=== PATIENT | female | born 1995 | race Two or more races ===

== ENCOUNTER 2019-03-29 16:29 | Emergency (ER) | payer OTHER ==
[~2019-03-29] VITALS: Ht 167.6 cm; Wt 97.5 kg
[2019-03-29] MEDS ORDERED: ZOLOFT25 MG ORAL (16:43)
[2019-03-29 16:54] VITALS: BP 135/86
--- NOTE | 2019-03-29 16:56 | NUR ---
ER Nurse Note: Pt walked in c/o pain on thumb on RT hand. Pt stated a family member's bird bit her hand and punctured through the thumb. Pt is unable to bend finger and states 10/10 pain. Finger is swollen. Not up to date with tetnus shot. ER PA at pt side; will conitnue to [facility].
[2019-03-29] MEDS ORDERED: Tetanus/Diptheria/Pertussis IM ONE (17:00)
--- NOTE | 2019-03-29 17:31 | Emergency Room Report ---
History of Present Illness General Chief Complaint: Animal Bite Source: Patient Present Illness HPI 23-year-old female with no significant past medical history here complaining of puncture wound in the right thumb that happened today. Patient reports that he was bit by a bird and the finger was grabbed for several minutes. Patient complains of numbness and pain full range of motion the tip of the affected side. Patient is not up-to-date with tetanus shot. Rating pain 10 out of 10 without radiation. Complains of minimal bleeding. Has not taken medication for symptom relief. Denies fever and chills, shortness of breath, palpitation, no other associated symptoms. Sensory deficit in the affected side Allergies: Coded Allergies: PENICILLINS (Verified Allergy, Unknown, 03/29/19) Patient History Past Medical History: see triage record Past Surgical History: unable to obtain Pertinent Family History: none Now: No Immunizations: other - Tdap given today Reviewed Nursing Documentation: PMH: Agreed; PSxH: Agreed Nursing Documentation-PMH Past Medical History: No Stated History Review of Systems All Other Systems: negative except mentioned in HPI Physical Exam Vital Signs Date Time Temp Pulse Resp B/P (MAP) Pulse Ox O2 Delivery O2 Flow Rate FiO2 03/29/19 16:40 99.0 87 17 135/86 (102) 99 Room Air Sp02 EP Interpretation: reviewed, normal General Appearance: no apparent distress, alert, GCS 15, non-toxic Head: normocephalic, atraumatic Eyes: bilateral eye normal inspection, bilateral eye PERRL ENT: hearing grossly normal, normal pharynx, no angioedema, normal voice Neck: full range of motion, supple/symm/no masses Respiratory: chest non-tender, lungs clear, normal breath sounds, no rhonchi, no wheezing, speaking full sentences Cardiovascular #1: regular rate, rhythm, no edema, no murmur Cardiovascular #2: 2+ radial (R), 2+ radial (L) Gastrointestinal: normal bowel sounds, non tender, soft, non-distended, no guarding, no rebound Genitourinary: no CVA tenderness Musculoskeletal: back normal, non-tender, swelling - Right thumb Neurologic: alert, motor strength/tone normal, oriented x3, sensory intact, responsive, speech normal Psychiatric: judgement/insight normal, memory normal, mood/affect normal, no suicidal/homicidal ideation Skin: other - Puncture wound of right thumb Lymphatic: no adenopathy Medical Decision Making AMIE Attestation All my diagnosis and treatment plans were reviewed ad discussed with my supervising physician Dr. Latham Diagnostic Impression: Primary Impression: Puncture wound of finger of right hand ER Course 23-year-old female with no significant past medical history here complaining of puncture wound in the right thumb that happened today. Patient reports that he was bit by a bird and the finger was grabbed for several minutes. Patient complains of numbness and pain full range of motion the tip of the affected side. Patient is not up-to-date with tetanus shot. Rating pain 10 out of 10 without radiation. Complains of minimal bleeding. Has not taken medication for symptom relief. Denies fever and chills, shortness of breath, palpitation, no other associated symptoms. Sensory deficit in the affected side Ddx considered but are not limited to : Superficial laceration, deep laceration , tendon involvement with laceration, laceration with foreign body, puncture wound Vital signs: are WNL, pt. is afebrile H&PE are most consistent with: Puncture wound of right thumb ORDERS: Clindamycin as patient is allergic to penicillin family, ibuprofen ED INTERVENTIONS: Wound clean, dressed, Tdap DISCHARGE: At this time pt. is stable for d/c to home. Will provide printed patient care instructions, and any necessary prescriptions. Care plan and follow up instructions have been discussed with the patient prior to discharge. Patient to follow-up with her primary care provider and hand specialist as a sensory deficit noted. If worsening symptoms return to the emergency room Other X-Ray Diagnostic Results Other X-Ray Diagnostic Results : X-Ray ordered: right finger # of Views/Limited Vs Complete: 3 View Indication: Pain EP Interpretation: Yes PA Xray: Interpretation reviewed, by supervising MD, and agrees with findings. Interpretation: no dislocation, no soft tissue swelling, no fractures, other - no fb Impression: No acute disease Electronically Signed by: Tanya Lyon PA-C Last Vital Signs Date Time Temp Pulse Resp B/P (MAP) Pulse Ox O2 Delivery O2 Flow Rate FiO2 03/29/19 16:54 99.0 82 17 135/86 99 Room Air Disposition: HOME, SELF-CARE Condition: Stable Scripts Ibuprofen (Ibu) 800 Mg Tablet 800 MG PO TID, #21 TAB Prov: Tanya Torre 03/29/19 Clindamycin Hcl (CLINDAMYCIN HCL) 300 Mg Capsule 300 MG ORAL FOUR TIMES A DAY for 7 Days, #28 CAP Prov: Tanya Torre 03/29/19 Patient Instructions: Animal Bite, Puncture Wound, [id number] Additional Instructions: Take medication as directed, follow-up with your primary care provider for referral to hand specialist, if worsening symptoms return to the emergency Tanya Torre Mar 29, 2019 17:31
[2019-03-29] MEDS ORDERED: CLINDAMYCIN HC300 MG ORAL (17:33)
[2019-03-29] MEDS ORDERED: IBU800 MG PO (17:33)
[2019-03-29 18:00] VITALS: BP 135/86
--- NOTE | 2019-03-29 18:00 | NUR ---
ER Nurse Note: Pt seen, treated, cleared to be discharged per ER PA. Discharge instructions given with repeat verbalization by pt. Encouraged pt follow up with primary care doctor within one week. Pt is aox4, on room air, with stable vital signs, no signs of distress. Wound site gauzed and wrapped. ID band removed. Pt is able to ambulate with steady gait. Pt took all belongings. Extra supplies given for wound care.
--- NOTE | 2019-03-30 12:43 | Diagnostic Imaging Report ---
Indication: pain in finger. trauma Findings: 3 views of the right thumb was obtained. No acute fractures, malalignment, erosions, or periosteal reaction are seen. Soft tissues are unremarkable. Impression: No acute findings.
== END 2019-03-29 20:27 | disposition home or self-care (01) ==
LOC: EMR 17:00
DX: S61.031A Puncture wound without foreign body of right thumb without damage to nail, initial encounter (principal); Z23 Encounter for immunization; W61.91XA Bitten by other birds, initial encounter; Y92.9 Unspecified place or not applicable; Z88.0 Allergy status to penicillin
CPT/HCPCS: 90471; 90715; 99283